=== PATIENT | male | born 1970 | race African-American/Black ===

== ENCOUNTER 2021-03-18 09:06 | Outpatient (CLI) | payer OTHER ==
--- NOTE | 2021-03-18 09:57 | XRay Report ---
CHEST 2 VIEWS INDICATION / CLINICAL INFORMATION: TOBACCO ABUSE. COMPARISON: None available. FINDINGS: SUPPORT DEVICES: None. HEART / MEDIASTINUM: No significant abnormality. LUNGS / PLEURA: No significant pulmonary or pleural abnormality. No pneumothorax. ADDITIONAL FINDINGS: No significant additional findings. IMPRESSION: 1. No acute findings. No definite nodular masses seen however a baseline CT screening could be perfor med given tobacco use history if indicated. Signer Name: Linus Moore MD Signed: 03/18/2021 9:53 AM Workstation Name: [id number]
== END 2021-03-18 09:07 | disposition home or self-care (01) ==
LOC: XRAY 09:06
PROVIDERS: ATTEND Internal Medicine
DX: F17.200 Nicotine dependence, unspecified, uncomplicated (principal)
CPT/HCPCS: 71046